=== PATIENT | male | born 1985 | race Two or more races ===

== ENCOUNTER 2022-10-12 18:09 | Inpatient (IN) | payer MEDICAID, OTHER ==
[~2022-10-12] VITALS: Ht 172.7 cm; Wt 66.0 kg
[2022-10-12] MEDS ORDERED: ACETAMINOPHEN 325 MG TAB PO ONE (18:45)
[2022-10-12] MEDS ORDERED: SODIUM CHLORIDE 0.9% 1,000 ML IV ONE (18:45)
[2022-10-12] MEDS ORDERED: methylPREDNISolone SOD SUCC 125 MG/2 ML VL IV ONE (18:45)
[2022-10-12] MEDS ORDERED: diphenhdrAMINE HCL 50 MG/1 ML VL IV ONE (18:45)
[2022-10-12] MEDS ORDERED: diphenhdrAMINE HCL 50 MG/1 ML VL ONE (18:46)
[2022-10-12] MEDS ORDERED: methylPREDNISolone SOD SUCC 125 MG/2 ML VL ONE (18:46)
[2022-10-12] MEDS ORDERED: DexAMETHasone SOD PHOS 10MG/1ML VIAL INJ IV ONE (20:00)
[2022-10-12] MEDS ORDERED: ALBUTEROL SULF 2.5 MG/0.5ML(0.5%) NEB SOLN NEB ONE (20:00)
[2022-10-12] MEDS ORDERED: LACTATED RINGER'S 1,000 ML IV ONE (20:00)
[2022-10-12] MEDS ORDERED: ALBUTEROL MEDNEB 2.5 mg/3ml NEB ONE (20:02)
[2022-10-12 20:18] LABS: Basophils # (auto) 0 10 ^3/uL (0-0.2); Basophils % (auto) 0.4 % (0.0-2.0); Eosinophils # (auto) 0.1 10 ^3/uL (0-0.8); Hematocrit 32.8 % (41.0-53.0); Hemoglobin 11.3 g/dL (13.5-17.5); Lymphocytes # (auto) 0.7 10 ^3/uL (0.4-5.4); Lymphocytes % (auto) 10.9 % (10.0-50.0); Mean Corpuscular Hemoglobin 27.8 pg (28.0-32.0); Mean Corpuscular Hgb Conc. 34.3 g/dL (32.0-36.0); Monocytes # (auto) 0.5 10 ^3/uL (0-1.3); Monocytes % (auto) 8.1 % (0.0-12.0); Neutrophils # (auto) 5.2 10 ^3/uL (1.6-8.6); Neutrophils % (auto) 78.6 % (37.0-80.0); Red Blood Cells 4.05 10^6/uL (4.5-5.90); White Blood Cell 6.6 10^3/uL (4.4-10.8)
[2022-10-12 20:32] LABS: Albumin 3.1 g/dL (3.4-5.0); Calcium 7.8 mg/dL (8.5-10.1)
[2022-10-12 20:40] LABS: Potassium 2.7 mmol/L (3.5-5.1)
[2022-10-12 20:44] LABS: BUN/Creatinine Ratio 10.8; Bilirubin, Total 0.7 mg/dL (0.2-1.0); Total Protein 6.9 g/dL (6.4-8.2)
[2022-10-12] MEDS ORDERED: POTASSIUM EFFERVESENT TAB 25 MEQ PO ONE (20:45)
[2022-10-12] MEDS ORDERED: POTASSIUM CHL 20MEQ/100ML 100 ML IV ONE (20:45)
[2022-10-12 21:53] LABS: Lactic Acid w/Reflex 2.5 mmol/L (0.4-2.0)
[2022-10-13] MEDS ORDERED: diphenhdrAMINE HCL 50 MG/1 ML VL IV ONE (02:30)
[2022-10-13] MEDS ORDERED: ALBUTEROL SULF 2.5 MG/0.5ML(0.5%) NEB SOLN NEB PRN (05:30)
[2022-10-13] MEDS ORDERED: TEMAZEPAM 15 MG CAP PO PRN (05:30)
[2022-10-13] MEDS ORDERED: ACETAMINOPHEN 325 MG TAB PO PRN (05:30)
[2022-10-13] MEDS ORDERED: ONDANSETRON HCL 4 MG/2 ML VIAL IV PRN (05:30)
[2022-10-13 07:37] VITALS: BP 128/74
[2022-10-13] MEDS: BIKTARVY PO SCH (10:00)
[2022-10-13] MEDS: levoFLOXacin 500MG 100 ML IV SCH (10:51)
[2022-10-13] MEDS: methylPREDNISolone SOD SUCC 125 MG/2 ML VL IV SCH ×2 (10:51→23:54)
[2022-10-13 22:11] LABS: Albumin 2.8 g/dL (3.4-5.0); Calcium 8.3 mg/dL (8.5-10.1); Potassium 3.6 mmol/L (3.5-5.1)
[2022-10-13 22:14] LABS: BUN/Creatinine Ratio 14.9; Bilirubin, Total 0.4 mg/dL (0.2-1.0); Total Protein 7.3 g/dL (6.4-8.2)
[2022-10-13 22:30] VITALS: BP 117/85
[2022-10-13] MEDS: diphenhdrAMINE HCL 25 MG CAP PO PRN (23:54)
[2022-10-14 05:37] VITALS: BP 112/70
[2022-10-14 05:59] LABS: Basophils # (auto) 0 10 ^3/uL (0-0.2); Basophils % (auto) 0.4 % (0.0-2.0); Eosinophils # (auto) 0 10 ^3/uL (0-0.8); Eosinophils % (auto) 0.1 % (0.0-7.0); Hematocrit 32.8 % (41.0-53.0); Hemoglobin 11.1 g/dL (13.5-17.5); Lymphocytes # (auto) 0.6 10 ^3/uL (0.4-5.4); Lymphocytes % (auto) 7.5 % (10.0-50.0); Mean Corpuscular Hemoglobin 27.5 pg (28.0-32.0); Mean Corpuscular Hgb Conc. 33.7 g/dL (32.0-36.0); Mean Corpuscular Volume 81.6 fL (80.0-100.0); Monocytes # (auto) 0.7 10 ^3/uL (0-1.3); Monocytes % (auto) 9.6 % (0.0-12.0); Neutrophils # (auto) 6.1 10 ^3/uL (1.6-8.6); Neutrophils % (auto) 82.4 % (37.0-80.0); Nucleated Red Blood Cells % 0.3 %; Red Blood Cells 4.02 10^6/uL (4.5-5.90); Red Cell Distribution Width 14.2 % (11.8-14.3); White Blood Cell 7.5 10^3/uL (4.4-10.8)
[2022-10-14 06:16] LABS: Potassium 3.2 mmol/L (3.5-5.1)
[2022-10-14 06:23] LABS: BUN/Creatinine Ratio 14.1; Calcium 8.6 mg/dL (8.5-10.1); Total Protein 7.5 g/dL (6.4-8.2)
[2022-10-14 08:59] VITALS: BP 113/70
[2022-10-14] MEDS: levoFLOXacin 500MG 100 ML IV SCH (11:06)
[2022-10-14] MEDS: methylPREDNISolone SOD SUCC 125 MG/2 ML VL IV SCH ×2 (11:07→21:34)
[2022-10-14] MEDS ORDERED: POTASSIUM EFFERVESENT TAB 25 MEQ PO ONE (12:45)
[2022-10-14 13:00] VITALS: BP 131/80
[2022-10-14] MEDS: BIKTARVY PO SCH (13:50)
[2022-10-14] MEDS ORDERED: PENICILLIN G BENZ 1200000 UNITS/2 ML SYRG IM ONE (15:00)
[2022-10-14] MEDS: diphenhdrAMINE HCL 25 MG CAP PO PRN (21:40)
[2022-10-14 22:00] VITALS: BP 129/73
[2022-10-15 05:00] VITALS: BP 97/45
[2022-10-15 08:30] VITALS: BP 106/66
[2022-10-15] MEDS ORDERED: PRED20TA2 PO (09:33)
[2022-10-15] MEDS: BIKTARVY PO SCH (09:42)
[2022-10-15] MEDS: levoFLOXacin 500MG 100 ML IV SCH (09:42)
[2022-10-15] MEDS: methylPREDNISolone SOD SUCC 125 MG/2 ML VL IV SCH (09:42)
[2022-10-15 13:00] VITALS: BP 131/87
== END 2022-10-15 15:15 | disposition home or self-care (01) | DRG 139 ==
LOC: ER 18:09 → OVERFLOW 10-13 05:31 → CENTRAL 10-13 22:02
PROVIDERS: ADMIT Nurse Practitioner; ATTEND Internal Medicine Pulmonary Disease
DX: J18.9 Pneumonia, unspecified organism (principal); J96.01 Acute respiratory failure with hypoxia; E44.0 Moderate protein-calorie malnutrition; E87.6 Hypokalemia; R00.0 Tachycardia, unspecified; R21 Rash and other nonspecific skin eruption; Z20.822 Contact with and (suspected) exposure to COVID-19; Z87.01 Personal history of pneumonia (recurrent); Z79.899 Other long term (current) drug therapy; Z88.2 Allergy status to sulfonamides; Z68.22 Body mass index [BMI] 22.0-22.9, adult
CPT/HCPCS: 36415; 71046; 71250; 80053; 83605; 83735; 83880; 84484; 85025; 85652; 86141; 86592; 87040; 87426; 87804; 93005; 94640; 96361; 96365; 96375; G0378; J0561; J1100; J1956; J3480